=== PATIENT | female | born 1985 | race Two or more races ===

== ENCOUNTER 2018-03-15 14:10 | Day surgery (SDC) | payer OTHER ==
[2018-03-15] MEDS ORDERED: LIDOCAINE 4% SOLUTION 50 ML BTL (16:00)
[2018-03-15] MEDS ORDERED: FENTAnyl 50 MCG/ML VIAL (16:28)
[2018-03-15] MEDS ORDERED: MIDAZOLAM 1 MG/ML 2 ML INJ (16:28)
== END 2018-03-15 17:16 | disposition home or self-care (01) ==
LOC: GIL 14:10
DX: K29.70 Gastritis, unspecified, without bleeding (principal); K44.9 Diaphragmatic hernia without obstruction or gangrene
CPT/HCPCS: 43239; 84703; 88305; 88312